=== PATIENT | female | born 1990 | race Caucasian/White ===

== ENCOUNTER 2018-10-02 22:24 | Emergency (ER) | payer BC ==
[~2018-10-02] VITALS: Ht 170.2 cm; Wt 71.7 kg
[2018-10-02] MEDS ORDERED: SODIUM CHLORIDE 0.9% 1000ML 1,000 ML IV STA (22:52)
[2018-10-02] MEDS ORDERED: KETOROLAC TROMETHAMINE 30 MG/ML VIAL IV STA (22:52)
[2018-10-02] MEDS ORDERED: ONDANSETRON HCL INJ 2 MG/ML VIAL IV STA (23:49)
[2018-10-03 00:26] LABS: BASOPHILS # (AUTO) 0.1 (0.0-0.1); BASOPHILS % 0.9 % (0.0-1.0); EOSINOPHILS % 0.4 % (0.0-6.0); HEMATOCRIT 45.3 % (34.2-44.1); HEMOGLOBIN 14.7 g/dL (12.0-16.0); LYMPHOCYTES # (AUTO) 1.5 (1.0-3.2); LYMPHOCYTES % 19.3 % (18.0-39.1); MEAN CORPUSCULAR HEMOGLOBIN 29.8 pg (28-32); MEAN CORPUSCULAR HGB CONC 32.5 g/dL (31-35); MEAN CORPUSCULAR VOLUME 91.7 fL (81-99); MONOCYTES # (AUTO) 0.7 (0.2-0.8); MONOCYTES % 8.4 % (4.4-11.3); NEUTROPHILS # (AUTO) 5.7 (2.1-6.9); NEUTROPHILS % 70.6 % (38.7-80.0); PLATELET COUNT 189 x10e3/uL (140-360); RED BLOOD COUNT 4.94 x10e6/uL (3.6-5.1); RED CELL DISTRIBUTION WIDTH 12.4 % (11.7-14.4)
[2018-10-03 00:43] LABS: ALANINE AMINOTRANSFERASE 15 IU/L (0-55); ALBUMIN 3.9 g/dL (3.5-5.0); ALBUMIN/GLOBULIN RATIO 1.3 (0.8-2.0); ALKALINE PHOSPHATASE 68 IU/L (40-150); ANION GAP 16.6 mmol/L (8-16); BLOOD UREA NITROGEN 16 mg/dL (7-26); BUN/CREATININE RATIO 17 (6-25); CALCIUM 8.7 mg/dL (8.4-10.2); CARBON DIOXIDE 21 mmol/L (22-29); CHLORIDE 105 mmol/L (98-107); CREATININE, SERUM 0.93 mg/dL (0.57-1.11); EST GLOMERULAR FILTRATION RATE > 60 ML/MIN (60-); GLUCOSE 113 mg/dL (74-118); POTASSIUM 3.6 mmol/L (3.5-5.1); SODIUM 139 mmol/L (136-145)
[2018-10-03 00:46] LABS: CLARITY,URINE CLOUDY (CLEAR); COLOR,URINE AMBER (YELLOW); KETONES,URINE NEGATIVE (NEGATIVE); LEUKOCYTE ESTERASE ,URINE NEGATIVE (NEGATIVE); NITRITE,URINE NEGATIVE (NEGATIVE); PROTEIN,URINE DIPSTICK TRACE (NEGATIVE); URINE UROBILINOGEN 0.2 mg/dL (0.2 - 1)
[2018-10-03 00:47] LABS: BILIRUBIN,URINE NEGATIVE (NEGATIVE); PREGNANCY TEST, URINE NEGATIVE (NEGATIVE)
[2018-10-03 01:02] LABS: BACTERIA,URINE FEW /HPF; EPITHELIAL CELLS,URINE FEW /LPF; RBC,URINE >50 /HPF (0-5)
--- NOTE | 2018-10-03 01:23 | Diagnostic Imaging Report ---
EXAM: CT Abdomen and Pelvis WITHOUT contrast INDICATION: Left flank pain. ^STONE PROTOCOL ^[id number] ^0050 ^Y COMPARISON: None. TECHNIQUE: Abdomen and pelvis were scanned utilizing a multidetector helical scanner from the lung base to the pubic symphysis without administration of IV contrast. Absence of intravenous contrast decreases sensitivity for detection of focal lesions and vascular pathology. Coronal and sagittal reformations were obtained. Routine protocol was performed. IV CONTRAST: None ORAL CONTRAST: Water COMPLICATIONS: None RADIATION DOSE: Total DLP: 352.8 mGy*cm Estimated effective dose: (DLP x 0.015 x size factor) mSv Dose modulation, iterative reconstruction, and/or weight based adjustment of the mA/kV was utilized to reduce the radiation dose to as low as reasonably achievable.. FINDINGS: LINES and TUBES: None. LOWER THORAX: Unremarkable HEPATOBILIARY: No focal hepatic lesions. No biliary ductal dilation. GALLBLADDER: No radio-opaque stones or sludge. No wall thickening. SPLEEN: No splenomegaly. PANCREAS: No focal masses or ductal dilatation. ADRENALS: No adrenal nodules KIDNEYS/URETERS: Trace left hydronephrosis secondary to a 3 mm stone at the ureterovesicular junction. No right hydronephrosis. Nonobstructing 3 mm stone in the superior pole of the right kidney. No cystic or solid mass lesions. GI TRACT: No abnormal distention, wall thickening, or evidence of bowel obstruction. Appendix is normal. PELVIC ORGANS/BLADDER: Tampon in place. Otherwise, unremarkable. LYMPH NODES: No lymphadenopathy. VESSELS: Unremarkable. PERITONEUM / RETROPERITONEUM: No free air or fluid. BONES: Unremarkable. SOFT TISSUES: Unremarkable. IMPRESSION: Right ureterovesicular junction 3 mm stone results in trace left hydronephrosis. Additional nonobstructing punctate calculus in the right kidney. Signed by: DR. rAjun Warner MD on 10/03/2018 1:19 AM
[2018-10-03] MEDS ORDERED: MORPHINE SULFATE INJ 4 MG/ML INJ IV PRN ×2 (02:30)
[2018-10-03 02:40] VITALS: BP 114/78
[2018-10-06] MEDS ORDERED: ZOFRAN8 MG PO (21:40)
[2018-10-06] MEDS ORDERED: FLOMAX0.4 MG PO (21:40)
[2018-10-06] MEDS ORDERED: TYLENOL WITH C1 EACH PO (21:40)
[2018-10-06] MEDS ORDERED: VALIUM5 MG PO (21:40)
== END 2018-10-03 04:16 | disposition home or self-care (01) ==
LOC: ER 22:24
DX: M54.5 Low back pain (principal); R10.32 Left lower quadrant pain; N20.0 Calculus of kidney
CPT/HCPCS: 36415; 74176; 80053; 81001; 81025; 85025; 99284; J1885; J2270; J2405; J7030

== ENCOUNTER 2019-07-04 19:29 | Emergency (ER) | payer BC ==
[~2019-07-04] VITALS: Ht 170.2 cm; Wt 72.6 kg
[~2019-07-04 19:29] MED LIST: FLOMAX0.4 MG PO; TYLENOL WITH C1 EACH PO; VALIUM5 MG PO; ZOFRAN8 MG PO
--- NOTE | 2019-07-04 20:26 | Diagnostic Imaging Report ---
Right hand 3 - views HISTORY: Pain. Injury. COMPARISON: None FINDINGS: No displaced fracture. Osseous alignment is within normal limits. The joint spaces are well-maintained. Mild soft tissue swelling about the medial aspect of the distal wrist. IMPRESSION: No acute osseous abnormality. Signed by: Dr. David Leonard M.D. on 07/04/2019 8:22 PM
== END 2019-07-04 21:02 | disposition home or self-care (01) ==
LOC: FSED 19:29
DX: S63.652A Sprain of metacarpophalangeal joint of right middle finger, initial encounter (principal); S63.654A Sprain of metacarpophalangeal joint of right ring finger, initial encounter; W21.09XA Struck by other hit or thrown ball, initial encounter; Y92.328 Other athletic field as the place of occurrence of the external cause
CPT/HCPCS: 99283